=== PATIENT | male | born 1985 | race Caucasian/White ===

== ENCOUNTER 2017-09-18 11:43 | Inpatient (IN) | payer MEDICAID ==
[2017-09-18] MEDS ORDERED: Acetaminophen 325 MG Tab PO PRN (12:02)
[2017-09-18] MEDS ORDERED: Ondansetron 4 MG/2 ML SDV IV PRN (12:02)
[2017-09-18] MEDS ORDERED: HUMAN IV ONE ×2 (12:30)
[2017-09-18] MEDS ORDERED: INSULIN REGULAR IV ONE ×2 (12:30)
[2017-09-18] MEDS ORDERED: SODIUM CHLORIDE 0.9% IV ONE ×2 (12:30)
[2017-09-18] MEDS: Pantoprazole 40 MG Vial IVPUSH SCH ×2 (12:42→19:47)
[2017-09-18] MEDS: fentaNYL 100 MCG/2 ML SDV IVPUSH PRN ×2 (12:42→22:43)
[2017-09-18 12:49] LABS: CHLORIDE,CL 95 mEq/L (98-106); SODIUM,NA 130 mEq/L (136-145)
[2017-09-18 13:11] LABS: O2 DELIVERY DEVICE ROOM AIR
[2017-09-18 13:17] LABS: PCO2 ARTERIAL 15 mm/Hg0 (35-45)
[2017-09-18 13:18] LABS: BASE EXCESS ARTERIAL < -30.0 (-2.0-3.0); BICARBONATE,ARTERIAL 2.8 mm/L (22.0-26.0); O2 SATURATION ARTERIAL 95 % (95-98); PO2 ARTERIAL 126 mm/Hg (80-100)
[2017-09-18] MEDS ORDERED: Sodium Bicarbonate 8.4% 50 MEQ/50 ML Syringe IVPUSH ONE (13:22)
[2017-09-18] MEDS ORDERED: Sodium Chloride 0.9% 1,000 ML IV SCH (16:30)
[2017-09-18] MEDS ORDERED: KCL IV SCH (16:30)
[2017-09-18] MEDS ORDERED: SODIUM CHLORIDE IV SCH (16:30)
[2017-09-18 16:35] LABS: O2 DELIVERY DEVICE ROOM AIR
[2017-09-18 16:36] LABS: O2 SATURATION ARTERIAL 97 % (95-98); PCO2 ARTERIAL 15 mm/Hg0 (35-45); PO2 ARTERIAL 120 mm/Hg (80-100)
[2017-09-18] MEDS ORDERED: Dextrose 5%-0.45% NaCl 1,000 ML IV SCH (17:45)
[2017-09-18] MEDS: D5 1/2 NS w/ 20 mEq/L KCl 1,000 ML IV SCH (17:57)
[2017-09-18 22:23] LABS: O2 DELIVERY DEVICE ROOM AIR
[2017-09-18 22:24] LABS: BICARBONATE,ARTERIAL 5.1 mm/L (22.0-26.0); O2 SATURATION ARTERIAL 96 % (95-98); PCO2 ARTERIAL 16 mm/Hg0 (35-45); PO2 ARTERIAL 109 mm/Hg (80-100)
--- NOTE | 2017-09-18 23:02 | PCM.SN ---
- Free Text/Narrative Note: Dr. Cullen called and updated with lab results. Advised to call [place] and consult with hospitalist regarding current treatment and labs. Spoke with hospitalist at [facility]. Discussed lab results and patient condition. Advised to continue current therapy as labs are improving. He recommends we draw venous pH and BMP at 0400. If continued improvement, continue current cares. He reports that he will gladly accept patient for transfer if patient starts to decline, but currently it looks like we are doing the right thing. Most recent blood glucose 163. Advised nursing to decrease insulin gtt to 5 units/hr and continue hourly blood glucose checks. Voided 600 mL urine. Ketones 160. Nursing staff to call if 0400 lab venous pH decreased from last pH or potassium is <3.5 or >5.0.
[2017-09-19] MEDS: D5 1/2 NS w/ 20 mEq/L KCl 1,000 ML IV SCH (03:56)
[2017-09-19] MEDS: Pantoprazole 40 MG Vial IVPUSH SCH ×2 (08:04→20:09)
[2017-09-19] MEDS: Insulin Aspart 100 Units/ML 3 ML Pen SUBCUT SCH ×4 (08:48→20:12)
[2017-09-19] MEDS: Insulin Detemir 100 Units/ML 3 ML Pen SUBCUT SCH (08:49)
--- NOTE | 2017-09-19 09:52 | PN ---
DATE: 09/19/2017 S: Mr. Fermin was admitted yesterday for diabetic ketoacidosis, sounds like he had had about a 2-day history of not feeling well, started having a lot of vomiting, became dehydrated and came into, was acidotic with a pH around 7.85. He was managed yesterday with 1 amp of bicarb, aggressive IV fluids, ultimately with D5 half normal with KCl and he is clinically improved. We have him on insulin drip and his pH last night came up to, I believe, 7.17. This morning, he is able to eat, feels much better. Denies any complaints. His vital signs were stable. He has had no hypotension, still little tachycardic. He has been afebrile. O: GENERAL: He is a pleasant, alert, and cooperative. HEENT: Grossly benign. NECK: Supple. No adenopathy felt. LUNGS: Lung sounds appear clear throughout. CARDIAC: Tones are regular, slightly tachy. ABDOMEN: Soft, appears nontender. Good bowel sounds heard. No peripheral edema is seen. SKIN: No signs of skin infections. ASSESSMENT: 1. VOMITING WITH DEHYDRATION. 2. DIABETIC KETOACIDOSIS IN TYPE 1 DIABETIC. P: We will continue with D5 half with KCl at this time and insulin drip until we know this patient's intake is adequate. Once he is tolerating p.o. intake, we will get him back on his routine insulin doses. We will start decreasing the frequency of Accu-Cheks. Repeat his panel and a venous pH one more time this morning. MARLON/SOCORRO /[id number]
[2017-09-19] MEDS ORDERED: Sodium Chloride 0.45% with KCl 1,000 ML IV SCH (12:30)
[2017-09-19] MEDS ORDERED: Zolpidem 5 MG Tab PO SCH (20:00)
[2017-09-20] MEDS: Pantoprazole 40 MG Vial IVPUSH SCH (08:03)
[2017-09-20 08:04] LABS: CHLORIDE,CL 108 mEq/L (98-106); SODIUM,NA 140 mEq/L (136-145)
[2017-09-20] MEDS: Insulin Aspart 100 Units/ML 3 ML Pen SUBCUT SCH (08:06)
[2017-09-20] MEDS: Insulin Detemir 100 Units/ML 3 ML Pen SUBCUT SCH (08:07)
--- NOTE | 2017-09-20 10:28 | DISCH ---
ADMISSION DIAGNOSIS: Diabetic ketoacidosis. DISCHARGE DIAGNOSIS: DIABETIC KETOACIDOSIS. HISTORY: Zheng is a 32-year-old, type 1 diabetic, on Lantus and Humalog. He is very uncontrolled and noncompliant diabetic who had a recent A1c of 11. He is set to see Dr. Mcqueen in a week for discussion of a possible insulin pump. Nevertheless, he had a 2 or 3-day history of gastroenteritis type symptoms with fevers, headaches, vomiting, and diarrhea. Presented to our facility in ketoacidosis with a blood sugar of over 400 and a pH of 6.8. Gale Jain consulted me in the emergency room. He was immediately given an amp of bicarb and 2 L of normal saline each with 10 units of insulin and we admitted him for typical DKA treatment. HOSPITAL COURSE: The patient was managed per protocol. After his initial 2 L bolus of normal saline, we switched him over to D5 half with 20 of KCl. Closely monitored his electrolyte status, potassium, and blood gases and over the next 24 hours, basically the patient was doing well. His pH was back up to around 7.2. He was eating and drinking well, having excellent urine outputs. Ketonuria was resolving and electrolytes were stable. He never became hypokalemic. We resumed him on his usual doses of insulin along with sliding scale and he has done fine in that regard. We are going to increase his Levemir from 30 to 36 units at night. We are going to increase his Humalog from 10 to 12. He has his followup with Dr. Mcqueen, orchid transplanter, next Sunday, and I have asked him to do q.i.d. Accu-Cheks until that time. He does not convince me that will happen but I have explained the rationale behind it to help Dr. Mcqueen improve his control. At this time, we will make no other changes to his regimen. He will have follow up with his usual provider Trip Jain in 2 weeks time. COMPLICATIONS: During his stay were none. CONSULTATIONS: None. DISPOSITION: Discharged home. ALETA /[id number]
== END 2017-09-20 09:55 | disposition home or self-care (01) | DRG 639 ==
LOC: CC.MS 11:43
PROVIDERS: ADMIT Physician Assistant Medical; ATTEND Family Medicine
DX: E10.10 Type 1 diabetes mellitus with ketoacidosis without coma (principal); Z79.4 Long term (current) use of insulin; E86.0 Dehydration; Z88.8 Allergy status to other drugs, medicaments and biological substances
CPT/HCPCS: 36415; 36600; 80048; 80053; 82800; 82803; 82962; 83735; 85025; 93005; A9270-GY; C9113; J1815-GY; J2405; J3010; J3480; J7030; J7050

== ENCOUNTER 2018-03-06 11:58 | Observation (INO) | payer MEDICAID ==
[2018-03-06] MEDS ORDERED: Sodium Chloride 0.9% 1,000 ML IV ONE (12:30)
[2018-03-06] MEDS ORDERED: Insulin Aspart 100 Units/ML 3 ML Pen SUBCUT ONE (12:32)
--- NOTE | 2018-03-06 12:45 | EDM.PDOC ---
ED HPI GENERAL MEDICAL PROBLEM - General Chief Complaint: Diabetic Complaint Stated Complaint: VOMITING/DIABETIC Time Seen by Provider: 03/06/18 12:04 Source of Information: Reports: Patient History Limitations: Reports: No Limitations - History of Present Illness INITIAL COMMENTS - FREE TEXT/NARRATIVE: Arias is a 32 yo male who presents to the ER via private vehicle. Mother is present with him. He admits he didn't feel well this morning and started vomiting. States he hasn't been checking his blood sugars as he is a known Type I diabetic. He states he took his insulin yesterday with supper and then took some more right after supper. He didn't tae it this morning and hadn't checked his blood sugar either. Admits he is not compliant with his diabetes. States he has been chilled all morning and just feels tired and weak. Onset: Today Location: Reports: Generalized - Related Data Allergies Allergy/AdvReac Type Severity Reaction Status Date / Time cefuroxime [From Zinacef] Allergy Rash Verified 09/18/17 11:50 Home Meds: Home Meds Celecoxib 200 mg PO DAILY 09/18/17 [History] Insulin Aspart [NovoLOG] See Protocol SQ WITHMEALSANDBED 09/18/17 [History] Zolpidem Tartrate 10 mg PO BEDTIME 09/18/17 [History] Insulin Glarg,Human.Rec.Analog [LantUS Solostar] 36 units SQ 0800 #0 09/20/17 [ Rx] Past Medical History HEENT History: Reports: Impaired Vision Endocrine/Metabolic History: Reports: Diabetes, Type I - Past Surgical History HEENT Surgical History: Reports: Other (See Below) Other HEENT Surgeries/Procedures: inner ear construction Social & Family History - Tobacco Use Smoking Status *Q: Former Smoker Used Tobacco, but Quit: No - Caffeine Use Caffeine Use: Reports: Soda - Alcohol Use Days Per Week of Alcohol Use: 5 Number of Drinks Per Day: 6 Total Drinks Per Week: 30 - Recreational Drug Use Recreational Drug Use: No ED ROS GENERAL - Review of Systems Review Of Systems: See Below Constitutional: Reports: Chills, Weakness, Fatigue. Denies: Fever HEENT: Reports: No Symptoms Respiratory: Denies: Shortness of Breath, Wheezing, Cough Cardiovascular: Reports: Lightheadedness. Denies: Chest Pain, Blood Pressure Problem, Palpitations GI/Abdominal: Reports: Nausea, Vomiting. Denies: Abdominal Pain, Bloody Stool, Constipation, Diarrhea : Reports: No Symptoms Musculoskeletal: Reports: No Symptoms Skin: Reports: No Symptoms Neurological: Reports: No Symptoms Psychiatric: Reports: No Symptoms ED EXAM GENERAL NO PERIP PULSE - Physical Exam Exam: See Below Exam Limited By: No Limitations General Appearance: Alert, No Apparent Distress Ears: Normal External Exam, Normal Canal, Hearing Grossly Normal, Normal TMs Nose: Normal Inspection, Normal Mucosa, No Blood Throat/Mouth: Normal Inspection, Normal Lips, Normal Teeth, Normal Gums, Normal Oropharynx, Normal Voice, No Airway Compromise Head: Atraumatic, Normocephalic Neck: Normal Inspection, Supple Respiratory/Chest: No Respiratory Distress, Lungs Clear, Normal Breath Sounds, No Accessory Muscle Use Cardiovascular: Regular Rate, Rhythm, No Murmur GI/Abdominal: Normal Bowel Sounds, Soft, Non-Tender, No Organomegaly, No Distention, No Abnormal Bruit Extremities: Normal Inspection, No Pedal Edema, Normal Capillary Refill Neurological: Alert, Oriented, Normal Cognition Psychiatric: Normal Affect, Normal Mood Skin Exam: Warm, Dry, Intact, Normal Color, No Rash Course - Vital Signs Last Recorded V/S: Last Vital Signs Temp 94.7 F L 03/06/18 12:18 Pulse 89 03/06/18 12:18 Resp 18 03/06/18 12:18 BP 109/58 L 03/06/18 12:18 Pulse Ox 98 03/06/18 12:18 - Orders/Labs/Meds Orders: Active Orders 24 hr Category Date Time Status Sodium Chloride 0.9% [Normal Saline] 1,000 ml Med 03/06/18 12:30 Active IV .BOLUS Medication Orders Sodium Chloride (Normal Saline) 1,000 mls @ 999 mls/hr IV .BOLUS ONE Stop: 03/06/18 13:30 Meds: Medications Generic Name Dose Route Start Last Admin Trade Name Freq PRN Reason Stop Dose Admin Sodium Chloride 1,000 mls @ 999 mls/hr 03/06/18 12:30 Normal Saline IV 03/06/18 13:30 .BOLUS ONE Discontinued Medications Generic Name Dose Route Start Last Admin Trade Name Freq PRN Reason Stop Dose Admin Insulin Aspart 10 unit 03/06/18 12:32 Novolog SUBCUT 03/06/18 12:33 ONETIME ONE Departure - Departure Time of Disposition: 12:44 Disposition: Refer to Observation Clinical Impression: Diabetic ketoacidosis Qualifiers: Diabetes mellitus type: type 1 Diabetes mellitus complication detail: without coma Qualified Code(s): E10.10 - Type 1 diabetes mellitus with ketoacidosis without coma - Discharge Information - Problem List & Annotations (1) Diabetic ketoacidosis SNOMED Code(s): 015426365, 697624818 Code(s): E13.10 - OTH DIABETES MELLITUS WITH KETOACIDOSIS WITHOUT COMA Status: Acute Current Visit: Yes Qualifiers: Diabetes mellitus type: type 1 Diabetes mellitus complication detail: without coma Qualified Code(s): E10.10 - Type 1 diabetes mellitus with ketoacidosis without coma - Problem List Review Problem List Initiated/Reviewed/Updated: Yes - My Orders Last 24 Hours: My Active Orders 03/06/18 12:30 Sodium Chloride 0.9% [Normal Saline] 1,000 ml IV .BOLUS - Assessment/Plan Admission H&P: Please use this note as an admission H&P Last 24 Hours: My Active Orders 03/06/18 12:30 Sodium Chloride 0.9% [Normal Saline] 1,000 ml IV .BOLUS Plan: Patient has known history of diabetic ketoacidosis. Will admit to Dr. Cullen's services under observation. Laboratory work is pending. Dr. Cullen consulted and in agreement with admission. Will give 1 liter IV Bolus of NS intially with repeat blood sugar after. Will closely monitor.
[2018-03-06] MEDS ORDERED: Ondansetron 4 MG/2 ML SDV IV PRN (13:19)
[2018-03-06] MEDS ORDERED: Ibuprofen 200 MG Tab PO PRN (13:19)
[2018-03-06] MEDS ORDERED: SODIUM CHLORIDE 0.9% IV SCH ×2 (15:15)
[2018-03-06] MEDS ORDERED: INSULIN REGULAR IV SCH ×2 (15:15)
[2018-03-06] MEDS ORDERED: HUMAN IV SCH ×2 (15:15)
[2018-03-06] MEDS ORDERED: Enoxaparin 40 MG/0.4 ML Syringe SUBCUT SCH (16:00)
[2018-03-06] MEDS: Insulin Aspart 100 Units/ML 3 ML Pen SUBCUT SCH (17:46)
[2018-03-07] MEDS ORDERED: Sodium Chloride 0.9% 1,000 ML IV SCH (01:30)
[2018-03-07 07:34] LABS: CHLORIDE,CL 103 mEq/L (98-106); SODIUM,NA 135 mEq/L (136-145)
[2018-03-07] MEDS ORDERED: Insulin Detemir 100 Units/ML 3 ML Pen SUBCUT SCH (08:00)
[2018-03-07] MEDS: Insulin Aspart 100 Units/ML 3 ML Pen SUBCUT SCH (08:12)
--- NOTE | 2018-03-07 15:27 | PCM.DCSUM1 ---
Discharge Summary - Hospital Course Free Text/Narrative:: Patient presented to ER with complaints of weakness and vomiting. Did feel chilled in the morning of admission. Mother concerned about his diabetes, dehydration. He had not been checking his blood sugars, not very compliant with that. He is good about taking his Lantus but doesn't often take his Novolog at meal time. His blood sugar on admit to the ER was 534. Creatinine 1.7. Sodium low at 124, potassium high at 5.8. Admitted and started on IV fluids. - Discharge Data Discharge Date: 03/07/18 Discharge Disposition: Home, Self-Care 01 Condition: Good - Patient Summary/Data Complications: none Consults: Consultations 03/06/18 13:19 Consult to Diabetic Nurse Specialist [CONS] Urgent Hospital Course: Patient feeling good today. Has been tolerating his meals, no further vomiting. Up and ambulating without concern. He is voiding well. Patient's labs much improved today, sodium up to 135, Potassium normalized to 3.9. Blood sugars have been running between 170-198. Did drop down to 83 last night but insulin drip was completed 30 minutes prior to that, thus blood sugar normalized after that. His creatinine is improved to 0.9. Patient is aware of necessity to be compliant with his diabetes due to serious even fatal consequences if he is not. Will discharge home. Continue to monitor blood sugars and administer insulin as directed. Follow up with Jose L in 2 weeks in clinic. - Patient Instructions Diet: Diabetic Diet Activity: As Tolerated - Discharge Plan Home Medications: Home Meds Celecoxib 200 mg PO DAILY 09/18/17 [History] Insulin Aspart [NovoLOG] See Protocol SQ WITHMEALSANDBED 09/18/17 [History] Insulin Glarg,Human.Rec.Analog [LantUS Solostar] 36 units SQ 0800 #0 09/20/17 [ Rx] Escitalopram [Lexapro] 10 mg PO DAILY 03/06/18 [History] Hydrochlorothiazide 25 mg PO DAILY 03/06/18 [History] Lisinopril 40 mg PO DAILY 03/06/18 [History] Referrals: Trip Jain PA-C [Emergency Provider] - (Follow up with Jose L Jain in 2 weeks in [place]) - Discharge Summary/Plan Comment DC Time >30 min.: No Discharge Summary/Plan Comment: Discharge home Continue current insulin regimen. Check blood sugars TID with meals as directed and evenings as needed. Follow up with Jose L Jain in 2 weeks. - General Info Date of Service: 03/07/18 Admission Dx/Problem (Free Text: Diabetic Ketoacidosis Functional Status: Reports: Pain Controlled, Tolerating Diet, Ambulating - Review of Systems General: Reports: Fatigue. Denies: Fever, Weakness HEENT: Reports: No Symptoms Pulmonary: Denies: Shortness of Breath, Cough, Sputum Cardiovascular: Denies: Chest Pain, Edema, Lightheadedness Gastrointestinal: Denies: Abdominal Pain, Nausea, Vomiting Genitourinary: Reports: No Symptoms Musculoskeletal: Reports: No Symptoms Skin: Reports: No Symptoms Neurological: Reports: No Symptoms - Patient Data Vitals - Most Recent: Last Vital Signs Temp 95.4 F 03/07/18 07:49 Pulse 76 03/07/18 07:49 Resp 20 03/07/18 07:49 BP 101/65 03/07/18 07:49 Pulse Ox 97 03/07/18 07:49 Weight - Most Recent: 150 lb I&O - Last 24 hours: Intake & Output 03/07/18 03/07/18 03/07/18 06:59 14:59 22:59 Intake Total 1230 Output Total 1100 Balance 130 Lab Results - Last 24 hrs: Laboratory Results - last 24 hr 03/06/18 03/06/18 03/06/18 Range/Units 12:58 16:30 18:29 WBC (5.0-10.0) 10^3/uL RBC (4.50-6.00) 10^6/uL Hgb (14.0-18.0) g/dL Hct (40.0-54.0) % MCV (82.0-94.0) fL MCH (27.0-32.0) pg MCHC (33.0-38.0) g/dL RDW Coeff of John (11.0-15.0) % Plt Count (150-400) 10^3/uL Neut % (Auto) (35-85) % Lymph % (Auto) (10-55) % Campbell % (Auto) (0-16) % Eos % (Auto) (0-5) % Baso % (Auto) (0-3) % Neut # (Auto) (1.80-7.00) 10^3/uL Lymph # (Auto) (1.00-4.80) 10^3/uL Campbell # (Auto) (0.00-0.80) 10^3/uL Eos # (Auto) (0.00-0.45) 10^3/uL Baso # (Auto) 10^3/uL Sodium (136-145) mEq/L Potassium (3.5-5.0) mEq/L Chloride (98-106) mEq/L Carbon Dioxide (21-32) mmol/L BUN (7-18) mg/dL Creatinine (0.7-1.3) mg/dL Est Cr Clr Drug Dosing mL/min Estimated GFR (MDRD) (>=60) mL/min Glucose (75-99) mg/dL POC Glucose 240 H 300 H (75-105) mg/dl Calcium (8.4-10.1) mg/dL Lipase 35 (11-82) U/L 03/06/18 03/06/18 03/06/18 Range/Units 19:44 22:04 23:48 WBC (5.0-10.0) 10^3/uL RBC (4.50-6.00) 10^6/uL Hgb (14.0-18.0) g/dL Hct (40.0-54.0) % MCV (82.0-94.0) fL MCH (27.0-32.0) pg MCHC (33.0-38.0) g/dL RDW Coeff of John (11.0-15.0) % Plt Count (150-400) 10^3/uL Neut % (Auto) (35-85) % Lymph % (Auto) (10-55) % Campbell % (Auto) (0-16) % Eos % (Auto) (0-5) % Baso % (Auto) (0-3) % Neut # (Auto) (1.80-7.00) 10^3/uL Lymph # (Auto) (1.00-4.80) 10^3/uL Campbell # (Auto) (0.00-0.80) 10^3/uL Eos # (Auto) (0.00-0.45) 10^3/uL Baso # (Auto) 10^3/uL Sodium (136-145) mEq/L Potassium (3.5-5.0) mEq/L Chloride (98-106) mEq/L Carbon Dioxide (21-32) mmol/L BUN (7-18) mg/dL Creatinine (0.7-1.3) mg/dL Est Cr Clr Drug Dosing mL/min Estimated GFR (MDRD) (>=60) mL/min Glucose (75-99) mg/dL POC Glucose 238 H 277 H 200 H (75-105) mg/dl Calcium (8.4-10.1) mg/dL Lipase (11-82) U/L 03/07/18 03/07/18 03/07/18 Range/Units 02:14 03:57 05:58 WBC (5.0-10.0) 10^3/uL RBC (4.50-6.00) 10^6/uL Hgb (14.0-18.0) g/dL Hct (40.0-54.0) % MCV (82.0-94.0) fL MCH (27.0-32.0) pg MCHC (33.0-38.0) g/dL RDW Coeff of John (11.0-15.0) % Plt Count (150-400) 10^3/uL Neut % (Auto) (35-85) % Lymph % (Auto) (10-55) % Campbell % (Auto) (0-16) % Eos % (Auto) (0-5) % Baso % (Auto) (0-3) % Neut # (Auto) (1.80-7.00) 10^3/uL Lymph # (Auto) (1.00-4.80) 10^3/uL Campbell # (Auto) (0.00-0.80) 10^3/uL Eos # (Auto) (0.00-0.45) 10^3/uL Baso # (Auto) 10^3/uL Sodium (136-145) mEq/L Potassium (3.5-5.0) mEq/L Chloride (98-106) mEq/L Carbon Dioxide (21-32) mmol/L BUN (7-18) mg/dL Creatinine (0.7-1.3) mg/dL Est Cr Clr Drug Dosing mL/min Estimated GFR (MDRD) (>=60) mL/min Glucose (75-99) mg/dL POC Glucose 83 170 H 187 H (75-105) mg/dl Calcium (8.4-10.1) mg/dL Lipase (11-82) U/L 03/07/1818 03/07/18 Range/Units 07:18 07:18 07:28 WBC 5.7 (5.0-10.0) 10^3/uL RBC 4.75 (4.50-6.00) 10^6/uL Hgb 14.4 (14.0-18.0) g/dL Hct 40.7 (40.0-54.0) % MCV 85.7 (82.0-94.0) fL MCH 30.3 (27.0-32.0) pg MCHC 35.4 (33.0-38.0) g/dL RDW Coeff of John 12.5 (11.0-15.0) % Plt Count 237 (150-400) 10^3/uL Neut % (Auto) 45.2 (35-85) % Lymph % (Auto) 42.0 (10-55) % Campbell % (Auto) 10.8 (0-16) % Eos % (Auto) 1.8 (0-5) % Baso % (Auto) 0.2 (0-3) % Neut # (Auto) 2.57 (1.80-7.00) 10^3/uL Lymph # (Auto) 2.38 (1.00-4.80) 10^3/uL Campbell # (Auto) 0.61 (0.00-0.80) 10^3/uL Eos # (Auto) 0.10 (0.00-0.45) 10^3/uL Baso # (Auto) 0.01 10^3/uL Sodium 135 L (136-145) mEq/L Potassium 3.9 D (3.5-5.0) mEq/L Chloride 103 (98-106) mEq/L Carbon Dioxide 20 L D (21-32) mmol/L BUN 13 D (7-18) mg/dL Creatinine 0.9 (0.7-1.3) mg/dL Est Cr Clr Drug Dosing 107.32 mL/min Estimated GFR (MDRD) > 60 (>=60) mL/min Glucose 232 H D (75-99) mg/dL POC Glucose 198 H (75-105) mg/dl Calcium 8.0 L (8.4-10.1) mg/dL Lipase (11-82) U/L Med Orders - Current: Current Medications Discontinued Medications Enoxaparin Sodium (Lovenox) 40 mg SUBCUT DAILY@1600 [facility] Last Admin: 03/06/18 17:17 Dose: 40 mg Sodium Chloride (Normal Saline) 1,000 mls @ 999 mls/hr IV .BOLUS ONE Stop: 03/06/18 13:30 Last Admin: 03/06/18 12:47 Dose: 999 mls/hr Insulin Human Regular 10 unit/ (Sodium Chloride) 1,000.1 mls @ 100 mls/hr IV ASDIRECTED [facility] Stop: 03/07/18 01:16 Last Admin: 03/06/18 15:45 Dose: 100 mls/hr Sodium Chloride (Normal Saline) 1,000 mls @ 100 mls/hr IV ASDIRECTED [facility] Last Admin: 03/07/18 01:28 Dose: 100 mls/hr Ibuprofen (Motrin) 400 mg PO Q6H PRN PRN Reason: Pain (mild 1-3) Insulin Aspart (Novolog) 10 unit SUBCUT ONETIME ONE Stop: 03/06/18 12:33 Last Admin: 03/06/18 12:47 Dose: 10 units Insulin Aspart (Novolog) 0 unit SUBCUT TIDMEALS [facility]; Protocol Last Admin: 03/07/18 08:12 Dose: 3 units Insulin Detemir (Levemir) 18 unit SUBCUT BID [facility] Last Admin: 03/07/18 08:37 Dose: 18 units Ondansetron HCl (Zofran) 4 mg IV Q4H PRN PRN Reason: Nausea/Vomiting - Exam General: Reports: Alert, Oriented HEENT: Reports: Mucous Membr. Moist/[place] Neck: Reports: Supple Lungs: Reports: Clear to Auscultation, Normal Respiratory Effort Cardiovascular: Reports: Regular Rate, Regular Rhythm GI/Abdominal Exam: Normal Bowel Sounds, Soft, Non-Tender Skin: Reports: Warm, Dry Neurological: Reports: No New Focal Deficit
== END 2018-03-07 11:23 | disposition home or self-care (01) ==
LOC: CC.ED 11:58 → CC.MS 12:36 → UNDOADMOB 12:36 → CC.MS 13:19
PROVIDERS: ADMIT Physician Assistant Medical; ATTEND Family Medicine
DX: E10.10 Type 1 diabetes mellitus with ketoacidosis without coma (principal); Z79.899 Other long term (current) drug therapy; Z88.1 Allergy status to other antibiotic agents; Z87.891 Personal history of nicotine dependence; Z79.4 Long term (current) use of insulin
CPT/HCPCS: 36415; 80048; 80053; 81001; 82962; 83615; 83690; 83735; 85025; 86140; 96360; 96361; 96372; 99284; G0378; J1650; J1815; J1815-GY; J7030

== ENCOUNTER 2018-11-21 13:22 | Inpatient (IN) | payer MEDICAID ==
[2018-11-21 13:29] LABS: O2 DELIVERY DEVICE ROOM AIR
[2018-11-21 13:50] LABS: BICARBONATE,ARTERIAL 5.9 mm/L (22.0-26.0); O2 SATURATION ARTERIAL 97 % (95-98); PCO2 ARTERIAL 16 mm/Hg0 (35-45); PO2 ARTERIAL 115 mm/Hg (80-100)
[2018-11-21 13:53] LABS: CHLORIDE,CL 93 mEq/L (98-106); SODIUM,NA 133 mEq/L (136-145)
[2018-11-21] MEDS ORDERED: Ibuprofen 200 MG Tab PO PRN (15:06)
[2018-11-21] MEDS ORDERED: Ondansetron 4 MG Tab.DIS PO PRN (15:06)
[2018-11-21] MEDS ORDERED: Acetaminophen 325 MG Tab PO PRN (15:06)
[2018-11-21] MEDS ORDERED: Sodium Chloride 0.9% 10 ML Syringe FLUSH PRN (15:06)
[2018-11-21] MEDS ORDERED: Sodium Chloride 0.9% 1,000 ML IV SCH (15:15)
[2018-11-21] MEDS ORDERED: Enoxaparin 40 MG/0.4 ML Syringe SUBCUT SCH (16:00)
[2018-11-21] MEDS: Pantoprazole 40 MG Vial IVPUSH SCH (16:06)
[2018-11-21] MEDS ORDERED: Insulin Aspart 100 Units/ML 3 ML Pen SUBCUT SCH (18:00)
[2018-11-21] MEDS: Insulin Glarg,Human.Rec.Analog 100 UNIT/ML ML SUBCUT SCH (18:14)
[2018-11-21] MEDS: Sodium Chloride 0.9% 1,000 ML IV SCH (20:08)
[2018-11-22] MEDS: Sodium Chloride 0.9% 1,000 ML IV SCH (05:59)
[2018-11-22 07:19] LABS: BICARBONATE,ARTERIAL 14.7 mm/L (22.0-26.0); O2 DELIVERY DEVICE ROOM AIR; O2 SATURATION ARTERIAL 95 % (95-98); PCO2 ARTERIAL 30 mm/Hg0 (35-45); PO2 ARTERIAL 84 mm/Hg (80-100)
[2018-11-22 07:29] LABS: CHLORIDE,CL 104 mEq/L (98-106); SODIUM,NA 137 mEq/L (136-145)
[2018-11-22] MEDS: Pantoprazole 40 MG Vial IVPUSH SCH (07:43)
[2018-11-22] MEDS ORDERED: Hydrochlorothiazide 25 MG Tab PO SCH (08:00)
[2018-11-22] MEDS ORDERED: Lisinopril 20 MG Tab PO SCH (08:00)
[2018-11-22] MEDS: Insulin Glarg,Human.Rec.Analog 100 UNIT/ML ML SUBCUT SCH (08:26)
--- NOTE | 2018-11-22 09:36 | PCM.DCSUM1 ---
Discharge Summary - Hospital Course HPI Initial Comments: Pt admitted from the clinic with DKA. Had been vomiting for about 24 hours prior to coming in. Has been able to keep some water down but not solids. Was admitted for IV hydration and close monitoring of vitals and blood sugars. Diagnosis: Stroke: No Modified [place] Scale: No Symptoms at All Modified [place] Scale Score: 0 - Discharge Data Discharge Date: 11/22/18 Discharge Disposition: Home, Self-Care 01 Condition: Good - Patient Summary/Data Complications: none Consults: none Labs Pending at D/C: none Hospital Course: Admitted and given IV fluids and sliding scale insulin. Was eventually able to tolerate food and blood sugars stabilized and he felt better the nest morning. - Patient Instructions Diet: Diabetic Diet Showering/Bathing: May Shower Notify Provider of: Nausea and/or Vomiting - Discharge Plan *PRESCRIPTION DRUG MONITORING PROGRAM REVIEWED*: Not Applicable *COPY OF PRESCRIPTION DRUG MONITORING REPORT IN PATIENT [place]: Not Applicable Home Medications: Home Meds Insulin Aspart [NovoLOG] See Protocol SQ WITHMEALSANDBED 09/18/17 [History] Lisinopril 40 mg PO DAILY 03/06/18 [History] hydroCHLOROthiazide [Hydrochlorothiazide] 25 mg PO DAILY 03/06/18 [History] Insulin Glarg,Human.Rec.Analog [LantUS Solostar] 35 units SQ 0800 11/21/18 [ History] Oxygen Therapy Mode: Room Air - Discharge Summary/Plan Comment DC Time >30 min.: No Discharge Summary/Plan Comment: discharge with previous dose of insulin. Avoid any alcohol return to normal diet. Recheck if not feeling well. - General Info Functional Status: Reports: Pain Controlled - Review of Systems General: Reports: No Symptoms HEENT: Reports: No Symptoms Pulmonary: Reports: No Symptoms Cardiovascular: Reports: No Symptoms Gastrointestinal: Reports: No Symptoms Genitourinary: Reports: No Symptoms Musculoskeletal: Reports: No Symptoms Skin: Reports: No Symptoms Neurological: Reports: No Symptoms - Patient Data Vitals - Most Recent: Last Vital Signs Temp 96.3 F 11/22/18 07:46 Pulse 77 11/22/18 07:46 Resp 16 11/22/18 07:46 BP 113/74 11/22/18 07:46 Pulse Ox 100 11/22/18 07:46 Weight - Most Recent: 150 lb I&O - Last 24 hours: Intake & Output 01/17/19 01/18/19 01/18/19 22:59 06:59 14:59 Intake Total 1010 1185 Output Total 300 750 750 Balance 710 435 -750 Lab Results - Last 24 hrs: Laboratory Results - last 24 hr 11/21/18 11/21/18 11/21/18 Range/Units 13:28 13:28 13:28 WBC 13.6 H (5.0-10.0) 10^3/uL RBC 5.16 (4.50-6.00) 10^6/uL Hgb 16.4 (14.0-18.0) g/dL Hct 47.6 (40.0-54.0) % MCV 92.2 (82.0-94.0) fL MCH 31.8 (27.0-32.0) pg MCHC 34.5 (33.0-38.0) g/dL RDW Coeff of John 12.2 (11.0-15.0) % Plt Count 356 (150-400) 10^3/uL Neut % (Auto) 80.2 (35-85) % Lymph % (Auto) 9.5 L (10-55) % [place] % (Auto) 9.8 (0-16) % Eos % (Auto) 0.1 (0-5) % Baso % (Auto) 0.4 (0-3) % Neut # (Auto) 10.95 H (1.80-7.00) 10^3/uL Lymph # (Auto) 1.30 (1.00-4.80) 10^3/uL [place] # (Auto) 1.33 H (0.00-0.80) 10^3/uL Eos # (Auto) 0.01 (0.00-0.45) 10^3/uL Baso # (Auto) 0.05 10^3/uL ABG pH 7.18 L (7.35-7.45) ABG pCO2 16 L (35-45) mm/Hg0 ABG pO2 115 H (80-100) mm/Hg ABG HCO3 5.9 L (22.0-26.0) mm/L ABG O2 Saturation 97 (95-98) % ABG Base Excess -23.0 L (-2.0-3.0) O2 Delivery Device Room air Sodium 133 L (136-145) mEq/L Potassium 5.1 H D (3.5-5.0) mEq/L Chloride 93 L (98-106) mEq/L Carbon Dioxide 12 L (21-32) mmol/L BUN 18 (7-18) mg/dL Creatinine 1.5 H D (0.7-1.3) mg/dL Est Cr Clr Drug Dosing TNP Estimated GFR (MDRD) 54 L (>=60) mL/min Glucose 202 H (75-99) mg/dL POC Glucose (75-105) mg/dl Calcium 9.4 (8.4-10.1) mg/dL Total Bilirubin 0.7 (0.0-1.0) mg/dL AST 27 (15-37) U/L ALT 56 (12-78) U/L Alkaline Phosphatase 156 H (46-116) U/L C-Reactive Protein (0.2-0.8) mg/dL Total Protein 8.9 H (6.4-8.2) g/dL Albumin 4.6 (3.4-5.0) g/dL Urine Color (YELLOW) Urine Appearance (CLEAR) Urine pH (4.5-8.0) Ur Specific [place] (1.003-1.020) Urine Protein (NEGATIVE) mg/dL Urine Glucose (UA) (NEGATIVE) mg/dL Urine Ketones (NEGATIVE) mg/dL Urine Occult Blood (NEGATIVE) Urine Nitrite (NEGATIVE) Urine Bilirubin (NEGATIVE) Urine Urobilinogen (0.2-1.0) EU/dL Ur Leukocyte Esterase (NEGATIVE) Urine RBC (0-5) /HPF Urine WBC (0-5) /HPF Ur Epithelial Cells (NOT SEEN) /HPF Urine Bacteria (NOT SEEN) /HPF Granular Casts (NOT SEEN) /LPF Urine Mucus (NOT SEEN) /HPF 11/21/18 11/21/18 11/21/18 Range/Units 13:28 15:06 15:12 WBC (5.0-10.0) 10^3/uL RBC (4.50-6.00) 10^6/uL Hgb (14.0-18.0) g/dL Hct (40.0-54.0) % MCV (82.0-94.0) fL MCH (27.0-32.0) pg MCHC (33.0-38.0) g/dL RDW Coeff of John (11.0-15.0) % Plt Count (150-400) 10^3/uL Neut % (Auto) (35-85) % Lymph % (Auto) (10-55) % [place] % (Auto) (0-16) % Eos % (Auto) (0-5) % Baso % (Auto) (0-3) % Neut # (Auto) (1.80-7.00) 10^3/uL Lymph # (Auto) (1.00-4.80) 10^3/uL [place] # (Auto) (0.00-0.80) 10^3/uL Eos # (Auto) (0.00-0.45) 10^3/uL Baso # (Auto) 10^3/uL ABG pH (7.35-7.45) ABG pCO2 (35-45) mm/Hg0 ABG pO2 (80-100) mm/Hg ABG HCO3 (22.0-26.0) mm/L ABG O2 Saturation (95-98) % ABG Base Excess (-2.0-3.0) O2 Delivery Device Sodium (136-145) mEq/L Potassium (3.5-5.0) mEq/L Chloride (98-106) mEq/L Carbon Dioxide (21-32) mmol/L BUN (7-18) mg/dL Creatinine (0.7-1.3) mg/dL Est Cr Clr Drug Dosing Estimated GFR (MDRD) (>=60) mL/min Glucose (75-99) mg/dL POC Glucose 222 H (75-105) mg/dl Calcium (8.4-10.1) mg/dL Total Bilirubin (0.0-1.0) mg/dL AST (15-37) U/L ALT (12-78) U/L Alkaline Phosphatase (46-116) U/L C-Reactive Protein 1.6 H (0.2-0.8) mg/dL Total Protein (6.4-8.2) g/dL Albumin (3.4-5.0) g/dL Urine Color Yellow (YELLOW) Urine Appearance Slightly cloudy (CLEAR) Urine pH 5.5 (4.5-8.0) Ur Specific [place] >= 1.030 H (1.003-1.020) Urine Protein 100 H (NEGATIVE) mg/dL Urine Glucose (UA) Negative (NEGATIVE) mg/dL Urine Ketones >=160 H (NEGATIVE) mg/dL Urine Occult Blood Moderate H (NEGATIVE) Urine Nitrite Negative (NEGATIVE) Urine Bilirubin Negative (NEGATIVE) Urine Urobilinogen 0.2 (0.2-1.0) EU/dL Ur Leukocyte Esterase Negative (NEGATIVE) Urine RBC 0-5 (0-5) /HPF Urine WBC 0-5 (0-5) /HPF Ur Epithelial Cells Occasional H (NOT SEEN) /HPF Urine Bacteria Occasional H (NOT SEEN) /HPF Granular Casts Moderate (NOT SEEN) /LPF Urine Mucus Few H (NOT SEEN) /HPF 11/21/18 11/21/18 11/22/18 Range/Units 17:19 20:00 07:00 WBC 5.3 (5.0-10.0) 10^3/uL RBC 4.33 L (4.50-6.00) 10^6/uL Hgb 13.6 L (14.0-18.0) g/dL Hct 39.8 L (40.0-54.0) % MCV 91.9 (82.0-94.0) fL MCH 31.4 (27.0-32.0) pg MCHC 34.2 (33.0-38.0) g/dL RDW Coeff of John 12.1 (11.0-15.0) % Plt Count 234 (150-400) 10^3/uL Neut % (Auto) 57.0 (35-85) % Lymph % (Auto) 28.9 (10-55) % [place] % (Auto) 12.6 (0-16) % Eos % (Auto) 1.1 (0-5) % Baso % (Auto) 0.4 (0-3) % Neut # (Auto) 3.04 (1.80-7.00) 10^3/uL Lymph # (Auto) 1.54 (1.00-4.80) 10^3/uL [place] # (Auto) 0.67 (0.00-0.80) 10^3/uL Eos # (Auto) 0.06 (0.00-0.45) 10^3/uL Baso # (Auto) 0.02 10^3/uL ABG pH (7.35-7.45) ABG pCO2 (35-45) mm/Hg0 ABG pO2 (80-100) mm/Hg ABG HCO3 (22.0-26.0) mm/L ABG O2 Saturation (95-98) % ABG Base Excess (-2.0-3.0) O2 Delivery Device Sodium 130 L (136-145) mEq/L Potassium 5.1 H (3.5-5.0) mEq/L Chloride 95 L (98-106) mEq/L Carbon Dioxide 14 L (21-32) mmol/L BUN 15 (7-18) mg/dL Creatinine 1.5 H (0.7-1.3) mg/dL Est Cr Clr Drug Dosing 61.50 Estimated GFR (MDRD) 54 L (>=60) mL/min Glucose 374 H* D (75-99) mg/dL POC Glucose 206 H (75-105) mg/dl Calcium 8.7 (8.4-10.1) mg/dL Total Bilirubin (0.0-1.0) mg/dL AST (15-37) U/L ALT (12-78) U/L Alkaline Phosphatase (46-116) U/L C-Reactive Protein (0.2-0.8) mg/dL Total Protein (6.4-8.2) g/dL Albumin (3.4-5.0) g/dL Urine Color (YELLOW) Urine Appearance (CLEAR) Urine pH (4.5-8.0) Ur Specific [place] (1.003-1.020) Urine Protein (NEGATIVE) mg/dL Urine Glucose (UA) (NEGATIVE) mg/dL Urine Ketones (NEGATIVE) mg/dL Urine Occult Blood (NEGATIVE) Urine Nitrite (NEGATIVE) Urine Bilirubin (NEGATIVE) Urine Urobilinogen (0.2-1.0) EU/dL Ur Leukocyte Esterase (NEGATIVE) Urine RBC (0-5) /HPF Urine WBC (0-5) /HPF Ur Epithelial Cells (NOT SEEN) /HPF Urine Bacteria (NOT SEEN) /HPF Granular Casts (NOT SEEN) /LPF Urine Mucus (NOT SEEN) /HPF 11/22/18 11/22/18 11/22/18 Range/Units 07:00 07:00 07:13 WBC (5.0-10.0) 10^3/uL RBC (4.50-6.00) 10^6/uL Hgb (14.0-18.0) g/dL Hct (40.0-54.0) % MCV (82.0-94.0) fL MCH (27.0-32.0) pg MCHC (33.0-38.0) g/dL RDW Coeff of John (11.0-15.0) % Plt Count (150-400) 10^3/uL Neut % (Auto) (35-85) % Lymph % (Auto) (10-55) % [place] % (Auto) (0-16) % Eos % (Auto) (0-5) % Baso % (Auto) (0-3) % Neut # (Auto) (1.80-7.00) 10^3/uL Lymph # (Auto) (1.00-4.80) 10^3/uL [place] # (Auto) (0.00-0.80) 10^3/uL Eos # (Auto) (0.00-0.45) 10^3/uL Baso # (Auto) 10^3/uL ABG pH 7.30 L (7.35-7.45) ABG pCO2 30 L (35-45) mm/Hg0 ABG pO2 84 (80-100) mm/Hg ABG HCO3 14.7 L (22.0-26.0) mm/L ABG O2 Saturation 95 (95-98) % ABG Base Excess -12.0 L (-2.0-3.0) O2 Delivery Device Room air Sodium 137 (136-145) mEq/L Potassium 4.6 (3.5-5.0) mEq/L Chloride 104 (98-106) mEq/L Carbon Dioxide 20 L D (21-32) mmol/L BUN 13 (7-18) mg/dL Creatinine 1.2 (0.7-1.3) mg/dL Est Cr Clr Drug Dosing 76.88 Estimated GFR (MDRD) > 60 (>=60) mL/min Glucose 195 H D (75-99) mg/dL POC Glucose 184 H (75-105) mg/dl Calcium 8.6 (8.4-10.1) mg/dL Total Bilirubin 0.5 (0.0-1.0) mg/dL AST 30 (15-37) U/L ALT 43 (12-78) U/L Alkaline Phosphatase 105 (46-116) U/L C-Reactive Protein (0.2-0.8) mg/dL Total Protein 6.4 (6.4-8.2) g/dL Albumin 3.3 L (3.4-5.0) g/dL Urine Color (YELLOW) Urine Appearance (CLEAR) Urine pH (4.5-8.0) Ur Specific [place] (1.003-1.020) Urine Protein (NEGATIVE) mg/dL Urine Glucose (UA) (NEGATIVE) mg/dL Urine Ketones (NEGATIVE) mg/dL Urine Occult Blood (NEGATIVE) Urine Nitrite (NEGATIVE) Urine Bilirubin (NEGATIVE) Urine Urobilinogen (0.2-1.0) EU/dL Ur Leukocyte Esterase (NEGATIVE) Urine RBC (0-5) /HPF Urine WBC (0-5) /HPF Ur Epithelial Cells (NOT SEEN) /HPF Urine Bacteria (NOT SEEN) /HPF Granular Casts (NOT SEEN) /LPF Urine Mucus (NOT SEEN) /HPF MEKA Results - Last 24 hrs: Microbiology 11/21/18 15:17 Influenza Type A Antigen Screen - Final Nasopharyngeal Swab NEGATIVE INFLUENZA A VIRUS AG Influenza Type B Antigen Screen - Final NEGATIVE INFLUENZA B VIRUS AG 11/21/18 15:17 Group A Streptococcus Rapid Screen - Final Throat NEGATIVE STREP A SCREEN Med Orders - Current: Current Medications Acetaminophen (Tylenol) 650 mg PO Q4H PRN PRN Reason: Pain (Mild 1-3)/fever Last Admin: 11/21/18 19:55 Dose: 650 mg Enoxaparin Sodium (Lovenox) 40 mg SUBCUT 1600 [facility] Last Admin: 11/21/18 16:06 Dose: 40 mg Hydrochlorothiazide (Hydrochlorothiazide) 25 mg PO DAILY [facility] Last Admin: 11/22/18 07:42 Dose: 25 mg Sodium Chloride (Normal Saline) 1,000 mls @ 250 mls/hr IV .BOLUS [facility] Last Admin: 11/21/18 16:07 Dose: 250 mls/hr Sodium Chloride (Normal Saline) 1,000 mls @ 100 mls/hr IV ASDIRECTED [facility] Last Admin: 11/22/18 05:59 Dose: 100 mls/hr Ibuprofen (Motrin) 400 mg PO Q6H PRN PRN Reason: Pain (mild 1-3) Last Admin: 11/21/18 20:56 Dose: 400 mg Insulin Aspart (Novolog) 0 unit SUBCUT WITHMEALSANDBED [facility]; Protocol Last Admin: 11/22/18 08:27 Dose: 1 units Insulin Glargine (Lantus) 35 unit SUBCUT 0800 [facility] Last Admin: 11/22/18 08:26 Dose: 35 units Lisinopril (Prinivil) 40 mg PO DAILY [facility] Last Admin: 11/22/18 07:42 Dose: 40 mg Ondansetron HCl (Zofran Odt) 8 mg PO Q4H PRN PRN Reason: nausea, able to take PO Pantoprazole Sodium (Protonix Iv) 40 mg IVPUSH [phone] [facility] Last Admin: 11/22/18 07:43 Dose: 40 mg Sodium Chloride (Saline Flush) 10 ml FLUSH ASDIRECTED PRN PRN Reason: Keep Vein Open Discontinued Medications Insulin Aspart (Novolog) 0 unit SUBCUT WITHMEALSANDBED [facility]; Protocol Last Admin: 11/21/18 19:16 Dose: Not Given - Exam Quality Assessment: Denies: Supplemental Oxygen General: Reports: Alert, Oriented HEENT: Reports: Pupils Equal, Pupils Reactive Neck: Reports: Supple Lungs: Reports: Clear to Auscultation, Normal Respiratory Effort Cardiovascular: Reports: Regular Rate, Regular Rhythm GI/Abdominal Exam: Normal Bowel Sounds, Soft, Non-Tender, No Organomegaly Back Exam: Reports: Normal Inspection, Full Range of Motion Extremities: Normal Inspection, Normal Range of Motion, No Pedal Edema, Normal Capillary Refill Skin: Reports: Warm, Dry, Intact Psy/Mental Status: Reports: Alert, Normal Affect, Normal Mood
== END 2018-11-22 11:00 | disposition home or self-care (01) | DRG 639 ==
LOC: CC.FCMC 13:22 → CC.MS 13:22 → UNDOADMIN 14:54 → CC.MS 14:54
PROVIDERS: ADMIT Physician Assistant Medical; ATTEND Family Medicine
DX: E10.9 Type 1 diabetes mellitus without complications (principal); E10.10 Type 1 diabetes mellitus with ketoacidosis without coma; Z79.4 Long term (current) use of insulin; Z88.1 Allergy status to other antibiotic agents; Z79.899 Other long term (current) drug therapy
CPT/HCPCS: 36415; 36600; 80048; 80053; 81001; 82803; 82962; 85025; 86140; 87430; 87804; A9270-GY; C9113; J1650; J7030

== ENCOUNTER 2019-03-02 08:55 | Emergency (ER) | payer MEDICAID ==
[2019-03-02] MEDS ORDERED: WATER IV ONE ×2 (08:56)
[2019-03-02] MEDS ORDERED: DEXTROSE 5% IV ONE ×2 (08:56)
[2019-03-02] MEDS ORDERED: Sodium Chloride 0.9% 1,000 ML IV ONE (08:56)
[2019-03-02] MEDS ORDERED: SODIUM BICARBONATE IV ONE ×2 (08:56)
[2019-03-02] MEDS ORDERED: Ondansetron 4 MG/2 ML SDV IV ONE (08:56)
[2019-03-02 09:25] LABS: O2 DELIVERY DEVICE ROOM AIR
[2019-03-02 09:34] LABS: BASE EXCESS ARTERIAL < -30.0 (-2.0-3.0); BICARBONATE,ARTERIAL 1.9 mm/L (22.0-26.0); O2 SATURATION ARTERIAL 96 % (95-98); PCO2 ARTERIAL 10 mm/Hg0 (35-45); PO2 ARTERIAL 136 mm/Hg (80-100)
[2019-03-02 09:50] LABS: CHLORIDE,CL 87 mEq/L (98-106); SODIUM,NA 127 mEq/L (136-145)
[2019-03-02] MEDS ORDERED: Dextrose 5% in Water 250 ML ONE ×2 (10:05→10:21)
[2019-03-02] MEDS ORDERED: Sodium Bicarbonate 8.4% 50 MEQ/50 ML Syringe ONE ×2 (10:05→10:21)
[2019-03-02] MEDS ORDERED: Sodium Chloride 0.9% 100 ML ONE (10:17)
[2019-03-02] MEDS ORDERED: Insulin Regular, Human 100 Units/ML 10 ML Vial ONE (10:18)
[2019-03-02] MEDS ORDERED: Sodium Chloride 0.9% 250 ML ONE (10:24)
--- NOTE | 2019-03-02 11:32 | EDM.PDOC ---
ED HPI GENERAL MEDICAL PROBLEM - General Chief Complaint: Gastrointestinal Problem Stated Complaint: N/V, DIABETES Time Seen by Provider: 03/02/19 09:05 Source of Information: Reports: Patient History Limitations: Reports: No Limitations - History of Present Illness INITIAL COMMENTS - FREE TEXT/NARRATIVE: Pt presented with vomiting and elevated blood sugar. States that he has been vomiting on and off all night. "I have the flu" Is type 1 diabetic. States that the last insulin he took was last night. Very poor control due to noncompliance. ketosis noted to breathe. REstless. Alert, oriented. Has history of DKA when he gets ill. Denies any pain. Is dry heaving when arriving here. Is able to answer all questions. No diarrhea. c/o mouth being very dry. Last alcohol intake was 2 days ago. Onset: Gradual Duration: Getting Worse Location: Reports: Abdomen Associated Symptoms: Reports: Nausea/Vomiting, Weakness - Related Data Allergies Allergy/AdvReac Type Severity Reaction Status Date / Time cefuroxime [From Zinacef] Allergy Rash Verified 03/02/19 09:31 Home Meds: Home Meds Insulin Aspart [NovoLOG] See Protocol SQ WITHMEALSANDBED 09/18/17 [History] Insulin Glarg,Human.Rec.Analog [LantUS Solostar] 36 units SQ TID 11/21/18 [ History] Past Medical History HEENT History: Reports: Impaired Vision Cardiovascular History: Reports: None Respiratory History: Reports: None Gastrointestinal History: Reports: None Genitourinary History: Reports: None Musculoskeletal History: Reports: None Neurological History: Reports: None Psychiatric History: Reports: None Endocrine/Metabolic History: Reports: Diabetes, Type I Hematologic History: Reports: None Oncologic (Cancer) History: Reports: None Dermatologic History: Reports: None - Past Surgical History HEENT Surgical History: Reports: Other (See Below) Other HEENT Surgeries/Procedures: inner ear construction Cardiovascular Surgical History: Reports: None GI Surgical History: Reports: None Male Surgical History: Reports: None Musculoskeletal Surgical History: Reports: None Social & Family History - Caffeine Use Caffeine Use: Reports: Soda - Alcohol Use Alcohol Use History: Yes Alcohol Use Frequency: Binges, Daily - Living Situation & Occupation Living situation: Reports: , with Family Occupation: Employed ED ROS GENERAL - Review of Systems Review Of Systems: See Below Constitutional: Reports: Weakness. Denies: Fever, Chills HEENT: Reports: Other (dry mouth as he is mouth breathing.). Denies: Eye Discharge Respiratory: Reports: Shortness of Breath, Other (tachypnea) Cardiovascular: Denies: Chest Pain Endocrine: Reports: High Glucose GI/Abdominal: Reports: Abdominal Pain, Vomiting. Denies: Diarrhea : Reports: No Symptoms Musculoskeletal: Reports: No Symptoms Skin: Reports: No Symptoms Neurological: Reports: Weakness ED EXAM, GI/ABD - Physical Exam Exam: See Below Exam Limited By: Altered Mental Status (lethargic. Able to answer questions. some restlessness.) General Appearance: Alert, WD/WN, Anxious, Lethargic, Mild Distress Ears: Normal External Exam, Normal Canal, Normal TMs Nose: Normal Inspection Throat/Mouth: Normal Inspection, Normal Oropharynx, Other (mouth very dry.) Head: Atraumatic, Normocephalic Neck: Normal Inspection, Supple, Non-Tender, Full Range of Motion Respiratory/Chest: Lungs Clear, Normal Breath Sounds, Other (tachypnea noted) Cardiovascular: Regular Rate, Rhythm, No Edema GI/Abdominal Exam: Normal Bowel Sounds, Soft, Non-Tender Extremities: Normal Inspection, Normal Range of Motion, No Pedal Edema, Slow Capillary Refill Neurological: Alert, Oriented. No: Disoriented Skin Exam: Warm, Dry, Intact Course - Orders/Labs/Meds Labs: Laboratory Tests 03/02/19 03/02/19 03/02/19 Range/Units 09:23 09:23 09:23 WBC 20.5 H* (5.0-10.0) 10^3/uL RBC 4.66 (4.50-6.00) 10^6/uL Hgb 15.4 (14.0-18.0) g/dL Hct 44.2 (40.0-54.0) % MCV 94.8 H (82.0-94.0) fL MCH 33.0 H (27.0-32.0) pg MCHC 34.8 (33.0-38.0) g/dL RDW Coeff of John 11.9 (11.0-15.0) % Plt Count 352 (150-400) 10^3/uL Add Manual Diff Yes Neutrophils % (Manual) 86 H (35-85) % Band Neutrophils % 1 (0-5) % Lymphocytes % (Manual) 8 L (21-55) % Monocytes % (Manual) 5 (2-12) % ABG pH (7.35-7.45) ABG pCO2 (35-45) mm/Hg0 ABG pO2 (80-100) mm/Hg ABG HCO3 (22.0-26.0) mm/L ABG O2 Saturation (95-98) % ABG Base Excess (-2.0-3.0) O2 Delivery Device Sodium 127 L (136-145) mEq/L Potassium 6.7 H* D (3.5-5.0) mEq/L Chloride 87 L (98-106) mEq/L Carbon Dioxide 2 L* D (21-32) mmol/L BUN 25 H D (7-18) mg/dL Creatinine 1.9 H D (0.7-1.3) mg/dL Est Cr Clr Drug Dosing TNP Estimated GFR (MDRD) 41 L (>=60) mL/min Glucose 495 H* D (75-99) mg/dL Lactic Acid TNP Calcium 8.3 L (8.4-10.1) mg/dL Total Bilirubin 0.6 (0.0-1.0) mg/dL AST 281 H (15-37) U/L ALT 410 H* (12-78) U/L Alkaline Phosphatase 379 H (46-116) U/L C-Reactive Protein 2.4 H (0.2-0.8) mg/dL Total Protein 8.1 (6.4-8.2) g/dL Albumin 4.2 (3.4-5.0) g/dL Urine Color (YELLOW) Urine Appearance (CLEAR) Urine pH (4.5-8.0) Ur Specific [place] (1.003-1.020) Urine Protein (NEGATIVE) mg/dL Urine Glucose (UA) (NEGATIVE) mg/dL Urine Ketones (NEGATIVE) mg/dL Urine Occult Blood (NEGATIVE) Urine Nitrite (NEGATIVE) Urine Bilirubin (NEGATIVE) Urine Urobilinogen (0.2-1.0) EU/dL Ur Leukocyte Esterase (NEGATIVE) Urine RBC (0-5) /HPF Urine WBC (0-5) /HPF Amorphous Sediment (NOT SEEN) /HPF 03/02/19 03/02/19 Range/Units 09:23 09:23 WBC (5.0-10.0) 10^3/uL RBC (4.50-6.00) 10^6/uL Hgb (14.0-18.0) g/dL Hct (40.0-54.0) % MCV (82.0-94.0) fL MCH (27.0-32.0) pg MCHC (33.0-38.0) g/dL RDW Coeff of John (11.0-15.0) % Plt Count (150-400) 10^3/uL Add Manual Diff Neutrophils % (Manual) (35-85) % Band Neutrophils % (0-5) % Lymphocytes % (Manual) (21-55) % Monocytes % (Manual) (2-12) % ABG pH 6.87 L (7.35-7.45) ABG pCO2 10 L (35-45) mm/Hg0 ABG pO2 136 H (80-100) mm/Hg ABG HCO3 1.9 L (22.0-26.0) mm/L ABG O2 Saturation 96 (95-98) % ABG Base Excess < -30.0 L (-2.0-3.0) O2 Delivery Device Room air Sodium (136-145) mEq/L Potassium (3.5-5.0) mEq/L Chloride (98-106) mEq/L Carbon Dioxide (21-32) mmol/L BUN (7-18) mg/dL Creatinine (0.7-1.3) mg/dL Est Cr Clr Drug Dosing Estimated GFR (MDRD) (>=60) mL/min Glucose (75-99) mg/dL Lactic Acid Calcium (8.4-10.1) mg/dL Total Bilirubin (0.0-1.0) mg/dL AST (15-37) U/L ALT (12-78) U/L Alkaline Phosphatase (46-116) U/L C-Reactive Protein (0.2-0.8) mg/dL Total Protein (6.4-8.2) g/dL Albumin (3.4-5.0) g/dL Urine Color Yellow (YELLOW) Urine Appearance Slightly cloudy (CLEAR) Urine pH 5.0 (4.5-8.0) Ur Specific [place] 1.025 H (1.003-1.020) Urine Protein 100 H (NEGATIVE) mg/dL Urine Glucose (UA) 500 H (NEGATIVE) mg/dL Urine Ketones >=160 H (NEGATIVE) mg/dL Urine Occult Blood Moderate H (NEGATIVE) Urine Nitrite Negative (NEGATIVE) Urine Bilirubin Negative (NEGATIVE) Urine Urobilinogen 0.2 (0.2-1.0) EU/dL Ur Leukocyte Esterase Negative (NEGATIVE) Urine RBC 0-5 (0-5) /HPF Urine WBC Not seen (0-5) /HPF Amorphous Sediment Occasional H (NOT SEEN) /HPF Meds: Medications Discontinued Medications Generic Name Dose Route Start Last Admin Trade Name Freblanca PRN Reason Stop Dose Admin Dextrose/Water Confirm 03/02/19 10:05 Dextrose 5% In Water Administered 03/02/19 10:06 Dose 250 mls @ as directed .ROUTE .STK-MED ONE Sodium Chloride Confirm 03/02/19 10:17 Normal Saline Administered 03/02/19 10:18 Dose 100 mls @ as directed .ROUTE .STK-MED ONE Dextrose/Water Confirm 03/02/19 10:21 Dextrose 5% In Water Administered 03/02/19 10:22 Dose 250 mls @ as directed .ROUTE .STK-MED ONE Sodium Chloride Confirm 03/02/19 10:24 Normal Saline Administered 03/02/19 10:25 Dose 250 mls @ as directed .ROUTE .STK-MED ONE Insulin Human Regular Confirm 03/02/19 10:18 Novolin R Administered 03/02/19 10:19 Dose 1,000 unit .ROUTE .STK-MED ONE Sodium Bicarbonate Confirm 03/02/19 10:05 Sodium Bicarbonate 8.4% Administered 03/02/19 10:06 Dose 50 meq .ROUTE .STK-MED ONE Sodium Bicarbonate Confirm 03/02/19 10:21 Sodium Bicarbonate 8.4% Administered 03/02/19 10:22 Dose 50 meq .ROUTE .STK-MED ONE - Re-Assessments/Exams Free Text/Narrative Re-Assessment/Exam: 03/02/19 1000- Discussed lab results with pt and informed him of need to transfer due to the abnormality. 03/02/19 1005- Talked to Dr. Asencio at [facility] one call hospitalist. Discussed labs and he recommends starting bicarb drip and insulin drip to keep blood sugar above 200. He feels that the pt needs to go to ICU and can not accept in transfer. 1020 pt was accepted in transfer by Dr. 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 Will tranfer by ground ALS as flights are not able to fly due to weather. Will transfer with the insulin drip and the bicarb drip. Departure - Departure Time of Disposition: 10:55 Disposition: DC/Tfer to [facility] 02 Condition: Critical Clinical Impression: Diabetic ketoacidosis Qualifiers: Diabetes mellitus type: type 1 Diabetes mellitus complication detail: without coma Qualified Code(s): E10.10 - Type 1 diabetes mellitus with ketoacidosis without coma - Discharge Information *PRESCRIPTION DRUG MONITORING PROGRAM REVIEWED*: Not Applicable *COPY OF PRESCRIPTION DRUG MONITORING REPORT IN PATIENT [place]: Not Applicable Referrals: Trip Jain PA-C [Primary Care Provider] - Forms: ED Department Discharge Additional Instructions: Transfer per ALS with bicarb drip and insulin drips per [facility]. - Problem List & Annotations (1) Diabetic ketoacidosis SNOMED Code(s): 563520752, 749653301 Code(s): E13.10 - OTH DIABETES MELLITUS WITH KETOACIDOSIS WITHOUT COMA Status: Acute Current Visit: Yes Qualifiers: Diabetes mellitus type: type 1 Diabetes mellitus complication detail: without coma Qualified Code(s): E10.10 - Type 1 diabetes mellitus with ketoacidosis without coma - Problem List Review Problem List Initiated/Reviewed/Updated: Yes - Assessment/Plan Plan: critical care time spent with the pt was 2 hours.
== END 2019-03-02 11:05 ==
LOC: CC.ED 08:55
DX: E10.10 Type 1 diabetes mellitus with ketoacidosis without coma (principal); Z88.1 Allergy status to other antibiotic agents
CPT/HCPCS: 36415; 36600; 80053; 81001; 82803; 85025; 86140; 96361; 96365; 96368; 96375; 99284-25; J1815-GY; J2405; J7030; J7050; J7060